=== PATIENT | male | born 1955 | race Caucasian/White ===

== ENCOUNTER 2018-06-22 01:29 | Emergency (ER) | payer SELFPAY ==
[~2018-06-22] VITALS: Ht 170.2 cm; Wt 93.0 kg
[2018-06-22 01:30] VITALS: BP 154/93
--- NOTE | 2018-06-22 01:36 | NUR ---
TO ED 01 WITH STEADY GAIT
[2018-06-22] MEDS ORDERED: predniSONE 20 MG TAB PO ONE (01:40)
[2018-06-22] MEDS ORDERED: ALBUTEROL 0.083% 2.5 MG/3 ML NEBU INH ONE (01:40)
[2018-06-22] MEDS ORDERED: ALBUTEROL SULFATE/IPRATROPIU 3 ML SOL IH ONE (01:40)
--- NOTE | 2018-06-22 01:46 | NUR ---
PATIENT PRESENTS TO ED WITH DIFFICULTY BREATHING X 2 DAYS. AUDIBLE WHEEZING NOTED. HX--ASTHMA RX--ALBUTEROL INHALER . DENIES N/V/D; SKIN IS PINK/WARM/DRY; AAOX4 WITH EVEN AND STEADY GAIT; LUNGS CLEAR BL; HR EVEN AND REGULAR; PT DENIES ANY FEVER, AT THIS TIME; PATIENT STATES PAIN OF 0/10 AT THIS TIME; VSS; PATIENT POSITIONED FOR COMFORT; HOB ELEVATED; BEDRAILS UP X2; BED DOWN. ER MD MADE AWARE OF PT STATUS.
--- NOTE | 2018-06-22 02:21 | NUR ---
pt has no more breathng distress. asleep.
[2018-06-22 04:20] VITALS: BP 124/88
--- NOTE | 2018-06-22 04:21 | NUR ---
Patient discharged with v/s stable. Written and verbal after care instructions given and explained. Patient alert, oriented and verbalized understanding of instructions. Ambulatory with steady gait. All questions addressed prior to discharge. ID band removed. Patient advised to follow up with PMD. Rx of ALBUTEROL AND PREDNISONE given. Patient educated on indication of medication including possible reaction and side effects. Opportunity to ask questions provided and answered.
== END 2018-06-22 04:21 | disposition home or self-care (01) ==
LOC: MED 01:29
DX: J45.909 Unspecified asthma, uncomplicated (principal)
CPT/HCPCS: 94640; 99284; J7512; J7613; J7620

== ENCOUNTER 2018-09-30 18:13 | Emergency (ER) | payer SELFPAY ==
[~2018-09-30] VITALS: Ht 167.6 cm; Wt 111.3 kg
[2018-09-30 18:15] VITALS: BP 141/85
--- NOTE | 2018-09-30 18:19 | NUR ---
PATIENT AMBULATED TO BED 11.
--- NOTE | 2018-09-30 18:20 | NUR ---
63 Y MALE PT BIB FAMILY C/O SOB, SORE THROAT, PRODUCTIVE COUGH X 2 DAYS. PAIN 0/10. SKIN COOL/CLAMMY/WET. BILATERAL WHEEZING UPON INHALATION AND EXPIRATION. RR 21. PT OXYGEN AT 93%. PT AA0X4. PATIENT STATES HIS BREATHING TREATMENT ARE NOT WORKING. ER MD AT BEDSIDE HX-COPD RX- ALBUTEROL NKA
--- NOTE | 2018-09-30 18:26 | NUR ---
OXYGEN CONTINUES TO DROP TO 90. PT STARTED ON 4 L NC. OXYGEN AT 96%
[2018-09-30] MEDS ORDERED: IPRATROPIUM 0.02% 0.5 MG/2.5 ML NEBU INH ONE (18:30)
[2018-09-30] MEDS ORDERED: predniSONE 20 MG TAB PO ONE (18:30)
[2018-09-30] MEDS ORDERED: ALBUTEROL 0.083% 2.5 MG/3 ML NEBU INH ONE ×2 (18:30→19:15)
[2018-09-30] MEDS ORDERED: UMEC1POW IH (18:33)
[2018-09-30] MEDS ORDERED: PRON INH (18:33)
--- NOTE | 2018-09-30 18:36 | NUR ---
RT AT BEDSIDE
--- NOTE | 2018-09-30 19:01 | NUR ---
RT FINISHED AT BEDSIDE
--- NOTE | 2018-09-30 19:07 | NUR ---
REPORT GIVEN TO STEFFI LLANOS
--- NOTE | 2018-09-30 19:45 | NUR ---
PT AMBULATED TO RESTROOM WITHOUT ASSISANCE. HE STATES BREATHING FEELING BETTER. STRONG AUDIBLE WHEEZING HEARD ON EXPIRATION. WINDED WHILE AMBULATING. 02SAT 91% @RA. AMBULATED BACK TO BED. 96% WITH NC @ 4LPM. CONTINUE TO MONITOR.
[2018-09-30] MEDS ORDERED: MAG SULF 2000 MG/WATER PREMIX 50 ML IV ONE (20:05)
[2018-09-30] MEDS ORDERED: methylPREDNISolone SS 125 MG/2 ML VIAL IVP ONE (20:05)
[2018-09-30] MEDS ORDERED: ALBUTEROL SULFATE/IPRATROPIU 3 ML SOL IH ONE (20:45)
--- NOTE | 2018-09-30 21:00 | NUR ---
PT IN BED RESTING WITH EYES OPEN. PT STAETS FEELING BETTER. WHEEZING HEARD. VSS. CONTINUE TO MONITOR.
--- NOTE | 2018-09-30 21:15 | NUR ---
RT AT BEDSIDE.
--- NOTE | 2018-09-30 21:31 | NUR ---
PT IN BED RESTING WITH EYES OPEN. STATES FEELING RELIEF AND BREATHING EASIER. VSS. CONTINUE TO MONITOR.
[2018-09-30 21:55] VITALS: BP 143/60
--- NOTE | 2018-09-30 21:55 | NUR ---
DISCHARGE PAPERS GIVEN TO PT. LUNGS CLEAR BILAT WITH REDUCED EXPIRATORY WHEEZING. O2SAT 91%AT RA. PT STATES FEELING MUCH BETTER AND READ TO GO HOME. VSS. RX OF PROAIR HFA, PREDNISONE, AND AMOXICILLIN GIVEN. SIDE EFFECTS EXPLAINED. INSTRUCTED TO F/U WITH PCP AND WHEN TO RETURN TO ER. PT VERBALLIZED UNDERSTANDING OF DC INSTRUCTIONS. ALL QUESTIONS ANSWERED.
== END 2018-09-30 21:55 | disposition home or self-care (01) ==
LOC: MED 18:13
DX: J44.1 Chronic obstructive pulmonary disease with (acute) exacerbation (principal); Z79.899 Other long term (current) drug therapy; Z90.49 Acquired absence of other specified parts of digestive tract
CPT/HCPCS: 94640; 94760; 96365; 96375; 99284; J2930; J3475; J7512; J7613; J7620; J7644

== ENCOUNTER 2018-10-01 12:43 | Inpatient (IN) | payer SELFPAY ==
--- NOTE | 2018-09-19 23:45 | NUR ---
PT LYING IN BED. PER PT, HE FELT BETTER WITH BREATHING TREATMENT. DENIES SOB OR PAIN. Addendum: 10/02/18 at 0235 by Mamadou Rogers RN WRONG TIME
[~2018-10-01] VITALS: Ht 170.2 cm; Wt 94.8 kg
[~2018-10-01 12:43] MED LIST: PRON INH; UMEC1POW IH
--- NOTE | 2018-10-01 12:56 | NUR ---
PT NOTED WITH LABORED BREATHING; USING ACCESSORY MUSCLES. RESPIRATORY THERAPIST CALLED. HOB ELEVATED. PLACED ON 2L OF O2 VIA NC.
--- NOTE | 2018-10-01 12:56 | NUR ---
PT PRESENTS TO ED C/O SOB X 2 DAYS. PT STATES HE WAS SEEN HERE IN [facility] YESTERDAY BUT WAS UNABLE TO FILL RX. O2 SAT <90%; PT PLACED ON 2 L OF O2 VIA NC--96% MEDICAL HX: COPD ALLERGIES: MOTRIN
--- NOTE | 2018-10-01 12:57 | NUR ---
Respiratory Therapist at bedside for respiratory intervention.
[2018-10-01 12:58] VITALS: BP 173/94
[2018-10-01] MEDS ORDERED: ALBUTEROL SULFATE/IPRATROPIU 3 ML SOL IH ONE (13:00)
[2018-10-01] MEDS ORDERED: methylPREDNISolone SS 125 MG/2 ML VIAL IVP ONE (13:00)
--- NOTE | 2018-10-01 13:01 | NUR ---
PT CAME IN SOB AFTER HIS DR OFFICE(PER PT). PLACED PT ON 3L NC. PT IS SITTING IN BED. MONITORING PT. MD ARGUETA MADE AWARE OF PT SITUATION.
--- NOTE | 2018-10-01 13:08 | NUR ---
DR. ARGUETA BEDSIDE EVALUATING PT
[2018-10-01] MEDS ORDERED: ALBUTEROL 0.083% 2.5 MG/3 ML NEBU INH ONE ×2 (13:20→13:45)
--- NOTE | 2018-10-01 13:25 | NUR ---
X RAY AT BEDSIDE
[2018-10-01 13:43] LABS: BASOPHILS % (AUTO) 0.3 % (0.0-2.0); HEMATOCRIT 44.4 % (36-52); HEMOGLOBIN 15.3 g/dL (12.0-18.0); LYMPHOCYTES # (AUTO) 1.2 K/uL (2.0-11.5); LYMPHOCYTES % (AUTO) 8.8 % (20.5-51.1); MEAN CORPUSCULAR HEMOGLOBIN 32 pg (27-31); MEAN CORPUSCULAR HGB CONC 34 g/dL (33-37); MEAN CORPUSCULAR VOLUME 92.1 fL (80-94); MONOCYTES # (AUTO) 0.2 K/uL (0.8-1.0); MONOCYTES % (AUTO) 1.7 % (1.7-9.3); NEUTROPHILS # (AUTO) 11.9 K/uL (1.8-7.7); NEUTROPHILS % (AUTO) 89.2 % (42.2-75.2); PLATELET COUNT (AUTO) 366 K/uL (140-450); RED BLOOD CELL COUNT(AUTO) 4.83 MIL/uL (4.20-6.10); RED CELL DISTRIBUTION WIDTH 14.5 % (11.6-13.7); WHITE BLOOD COUNT (AUTO) 13.3 K/uL (4.8-10.8)
[2018-10-01] MEDS ORDERED: MAG SULF 2000 MG/WATER PREMIX 50 ML IV ONE (13:45)
[2018-10-01 14:06] LABS: ANION GAP 13.5 (8-16); CARBON DIOXIDE 25.8 mmol/L (21-32); CREATININE 1.1 mg/dL (0.7-1.3); POTASSIUM 4.3 mmol/L (3.5-5.1)
[2018-10-01 14:17] LABS: ALBUMIN 4.2 g/dL (3.4-5.0); TOTAL BILIRUBIN 0.9 mg/dL (0.0-1.0)
[2018-10-01] MEDS ORDERED: hydrALAZINE 20 MG/ML VIAL IVP ONE (14:30)
[2018-10-01] MEDS ORDERED: HYDROcodone/APAP 5/325 MG 1 TAB TAB PO PRN (15:00)
[2018-10-01] MEDS ORDERED: DOCUSATE SODIUM 100 MG GELCAP PO PRN (15:00)
[2018-10-01] MEDS ORDERED: ACETAMINOPHEN 325 MG TAB PO PRN (15:00)
[2018-10-01] MEDS ORDERED: ONDANSETRON 4 MG/2 ML VIAL IM/IVP PRN (15:00)
[2018-10-01] MEDS ORDERED: MORPHINE SULFATE 2 MG/ML SYR IVP PRN (15:00)
[2018-10-01] MEDS ORDERED: LORazepam 2 MG/ML VIAL IM/IVP PRN (15:00)
[2018-10-01 15:40] VITALS: BP 132/68
--- NOTE | 2018-10-01 15:40 | NUR ---
Patient will be admitted to care of DR ASKEW. Admited to TELE. Will go to room 124B. Belongings list completed. Report to VIET TRIPLETT.
--- NOTE | 2018-10-01 15:40 | NUR ---
RECEIVED REPORT FROM EMERGENCY ROOM NURSE JACKIE FOR CONTINUITY OF CARE. PT IN STABLE CONDITION. RESPIRATIONS EVEN AND UNLABORED. O2 2L VIA NC INTACT AND PATENT. IV INTACT AND PATENT. SKIN INTACT. SKIN COLOR NORMAL TO ETHNICITY. CALL LIGHT AT BEDSIDE, INSTRUCTIONS GIVEN FOR USE PT VERBALIZED UNDERSTANDING OF INSTRUCTIONS. BED IN LOW POSITION. WILL CONTINUE TO MONITOR.
[2018-10-01 15:52] LABS: PROTHROMBIN TIME 9.9 secs (10.8-13.4)
[2018-10-01 16:02] LABS: FREE T4 (FREE THYROXINE) 0.82 ng/dL (0.76-1.46); MAGNESIUM 2.2 mg/dL (1.8-2.4); PHOSPHORUS 2.5 mg/dL (2.5-4.9); THYROID STIMULATING HORMONE 0.52 uIU/mL (0.34-3.74)
[2018-10-01] MEDS: NACL 0.9% 1,000 ML IV SCH (16:31)
--- NOTE | 2018-10-01 16:45 | NUR ---
MRSA NARES SPECIMEN TAKEN TO LAB AT THIS TIME.
--- NOTE | 2018-10-01 19:22 | NUR ---
GAVE REPORT TO FLORIST HELPER NURSE MARCELLA FOR CONTINUITY OF CARE. PT IN STABLE CONDITION
--- NOTE | 2018-10-01 19:23 | NUR ---
RECEIVED REPORT FROM DAY SHIFT NURSE. PT SITTING ON BED. AAOX4. NO C/O PAIN OR SOB. ON O2 AT 2L/MIN VIA NC. SKIN INTACT. IV TO LEFT AC #22G, NS AT 60 ML/HR INFUSING WELL. DISCUSSED PLAN OF CARE, PT VERBALIZED UNDERSTANDING. CALL LIGHT WITHIN REACH.
[2018-10-01] MEDS: ALBUTEROL SULFATE/IPRATROPIU 3 ML SOL IH SCH ×2 (19:38→23:02)
[2018-10-01 20:00] VITALS: BP 122/60
[2018-10-01] MEDS ORDERED: AZITHROMYCIN 250 MG TAB PO SCH ×2 (20:40→21:41)
--- NOTE | 2018-10-01 22:30 | NUR ---
FOLLOW UP PT'S CT CHEST ANGIO WITH/WITHOUT CONTRAST. TECH STILL BUSY AT THE ER BUT WILL DO THE PROCEDURE SOON HE'S DONE.
--- NOTE | 2018-10-01 23:05 | NUR ---
PT C/O MILD SOB. RT IN THE ROOM TO GIVE BREATHING TREATMENT.
--- NOTE | 2018-10-01 23:45 | NUR ---
PT LYING IN BED. PER PT, HE FELT BETTER WITH BREATHING TREATMENT. DENIES SOB OR PAIN
[2018-10-02] VITALS: BP 120/71
--- NOTE | 2018-10-02 00:15 | NUR ---
INSERTED IV LINE #20G TO RIGHT FA FOR CT PROCEDURE. GOOD FLUSH AND BLOOD RETURN. PT TOLERATED PROCEDURE WELL.
--- NOTE | 2018-10-02 00:45 | NUR ---
PT LEFT THE UNIT FOR CT ANGIO WITH MANAGER OF RECRUITING VIA WHEELCHAIR. PT IN STABLE CONDITION.
[2018-10-02] MEDS ORDERED: ZOLPIDEM 5 MG TAB PO PRN ×2 (01:50→13:01)
--- NOTE | 2018-10-02 02:00 | NUR ---
PT BACK TO HIS ROOM. SNACK PROVIDED. ALL NEEDS ATTENDED AT THIS TIME.
--- NOTE | 2018-10-02 02:10 | NUR ---
PT C/O UNABLE TO SLEEP. DR. PADGETT MADE AWARE AND ORDERED AMBIEN 5 MG.
--- NOTE | 2018-10-02 02:15 | NUR ---
PT C/O SOB. PT SITTING ON BED. O2 SAT 94% ON 2L/MIN VIA NC. CALLED RT FOR BREATHING TREATMENT.
[2018-10-02] MEDS: ALBUTEROL SULFATE/IPRATROPIU 3 ML SOL IH SCH ×4 (02:22→19:37)
--- NOTE | 2018-10-02 02:25 | NUR ---
PT ON BREATHING TREATMENT AT THIS TIME. RT AT BEDSIDE.
--- NOTE | 2018-10-02 02:30 | NUR ---
PT C/O PAIN ON THE IV SITE RIGHT AC AND WANTED THE IV TO BE REMOVED. IV REMOVED, CANNULA TIP INTACT. NO BLEEDING NOTED.
[2018-10-02 04:00] VITALS: BP 128/72
[2018-10-02] MEDS ORDERED: FAMOTIDINE 20 MG/2 ML VIAL IV SCH (04:05)
[2018-10-02] MEDS ORDERED: HYDROCORTISONE NA SUCC 100 MG/2 ML VIAL IV SCH (04:05)
--- NOTE | 2018-10-02 04:15 | NUR ---
PT C/O SOB. PT SITTING ON BED. O2 SAT 95% ON 2L. DR. CANADA IN THE ROOM TO SEE PT.
[2018-10-02] MEDS ORDERED: methylPREDNISolone SS 125 MG/2 ML VIAL IVP SCH (04:20)
--- NOTE | 2018-10-02 04:30 | NUR ---
DR. CANADA ORDERED FAMOTIDINE 25 MG IVP AND SOLU MEDROL 125 MG IVP. PT HAVING BREATHING TREATMENT AT THIS TIME.
[2018-10-02] MEDS ORDERED: IPRATROPIUM 0.02% 0.5 MG/2.5 ML NEBU INH SCH ×2 (04:35→07:00)
--- NOTE | 2018-10-02 05:30 | NUR ---
PT SLEEPING. NO S/S OF RESP DISTRESS. NO S/S OF PAIN OR DISCOMFORT. CALL LIGHT WITHIN REACH.
[2018-10-02 06:20] LABS: BASOPHILS % (AUTO) 0.1 % (0.0-2.0); CHOL/HDL RATIO 4.4 (1-4.5); HEMATOCRIT 41.8 % (36-52); HEMOGLOBIN 14.1 g/dL (12.0-18.0); LYMPHOCYTES # (AUTO) 1.5 K/uL (2.0-11.5); LYMPHOCYTES % (AUTO) 8.9 % (20.5-51.1); MAGNESIUM 2.3 mg/dL (1.8-2.4); MEAN CORPUSCULAR HEMOGLOBIN 31 pg (27-31); MEAN CORPUSCULAR HGB CONC 34 g/dL (33-37); MEAN CORPUSCULAR VOLUME 92.4 fL (80-94); MONOCYTES # (AUTO) 1.2 K/uL (0.8-1.0); MONOCYTES % (AUTO) 7.3 % (1.7-9.3); NEUTROPHILS # (AUTO) 14.1 K/uL (1.8-7.7); NEUTROPHILS % (AUTO) 83.7 % (42.2-75.2); PHOSPHORUS 4.3 mg/dL (2.5-4.9); PLATELET COUNT (AUTO) 358 K/uL (140-450); RED BLOOD CELL COUNT(AUTO) 4.53 MIL/uL (4.20-6.10); RED CELL DISTRIBUTION WIDTH 14.2 % (11.6-13.7); WHITE BLOOD COUNT (AUTO) 16.8 K/uL (4.8-10.8)
[2018-10-02 06:21] LABS: ANION GAP 12.6 (8-16); CARBON DIOXIDE 25.9 mmol/L (21-32); POTASSIUM 4.5 mmol/L (3.5-5.1)
--- NOTE | 2018-10-02 07:10 | NUR ---
ENDORSED PT TO DAY SHIFT NURSE. PT IN STABLE CONDITION.
--- NOTE | 2018-10-02 07:20 | NUR ---
RECEIVED REPORT TO LENS BLANK GAUGER NURSE ANN FOR CONTINUITY OF CARE. PT IN STABLE CONDITION. RESPIRATIONS EVEN AND UNLABORED. IV INTACT AND PATENT. SAFETY MEASURES IN PLACE. CALL LIGHT AT BEDSIDE INSTRUCTIONS GIVEN, PT VERBALIZED UNDERSTANDING OF INSTRUCTIONS. BED IN LOW POSITION. WILL CONTINUE TO MONITOR.
[2018-10-02] MEDS: ALBUTEROL SULFATE/IPRATROPIU 3 ML SOL IH PRN (07:29)
[2018-10-02] MEDS: BUDESONIDE 0.5 MG/2 ML NEBU INH SCH ×2 (07:30→19:37)
[2018-10-02 08:00] VITALS: BP 128/74
--- NOTE | 2018-10-02 08:04 | NUR ---
PATIENT HAS BEEN SCREENED AND CATEGORIZED MODERATE NUTRITION RISK. PATIENT WILL BE SEEN WITHIN 3-5 DAYS OF ADMISSION. 10/04/18KELSI [address]
[2018-10-02] MEDS: NACL 0.9% 1,000 ML IV SCH (09:41)
--- NOTE | 2018-10-02 09:45 | NUR ---
PT LYING IN BED IN STABLE CONDITION. RESPIRATIONS EVEN AND UNLABORED. BED IN LOW POSITION. CALL LIGHT AT BEDSIDE. WILL CONTINUE TO MONITOR.
--- NOTE | 2018-10-02 11:06 | NUR ---
PT LYING IN BED WITH FAMILY (SISTER) AT BEDSIDE. RESPIRATIONS EVEN AND UNLABORED. BED IN LOW POSITION. CALL LIGHT AT BEDSIDE. WILL CONTINUE TO MONITOR.
[2018-10-02 12:00] VITALS: BP 148/62
[2018-10-02] MEDS ORDERED: BENZONATATE 100 MG CAPLF PO PRN (13:00)
[2018-10-02] MEDS ORDERED: PUL.25N INH (13:23)
--- NOTE | 2018-10-02 13:45 | NUR ---
PT RECEIVING BREATHING TREATMENT AT THIS TIME. PT TOLERATING WELL. RESPIRATIONS EVEN AND UNLABORED WILL CONTINUE TO MONITOR. BED IN LOW POSITION. CALL LIGHT AT BEDSIDE.
[2018-10-02] MEDS: methylPREDNISolone SS 125 MG/2 ML VIAL IVP SCH ×2 (14:28→21:02)
--- NOTE | 2018-10-02 14:49 | NUR ---
TOLERATED INCENTIVE SPIROMETRY THERAPY WELL WITHOUT INCIDENT ENCOURAGED PATIENT WITH ACKNOWLEDGEMENT TO USE INCENTIVE SPIROMETRY EVERY 1-2 HOURS WHILE AWAKE
--- NOTE | 2018-10-02 15:58 | NUR ---
PT LYING IN BED WITH FRIEND AT BEDSIDE. PT IN STABLE CONDITION. CALL LIGHT AT BEDSIDE. BED IN LOW POSITION. WILL CONTINUE TO MONITOR.
[2018-10-02 16:00] VITALS: BP 144/83
[2018-10-02] MEDS ORDERED: AZIT250T3 PO (18:15)
[2018-10-02] MEDS ORDERED: METH4TAB3 PO (18:15)
--- NOTE | 2018-10-02 19:23 | NUR ---
RECIEVED PT. AAOX2 , NOT IN DISTRESS . IV SIE INTACT AND PATENT , V/S STBALE , ON REGULAR DIET , PLAN OF CARE DISCUSSED AND [id number] UNDERSTANDING , CALL LIGHT WITHIN REACH .
--- NOTE | 2018-10-02 19:23 | NUR ---
GAVE REPORT TO PEDIATRIC PHYSICAL THERAPY ASSISTANT NURSE GELY FOR CONTINUITY OF CARE. PT IN STABLE CONDITION.
[2018-10-02 20:00] VITALS: BP 135/55
--- NOTE | 2018-10-02 22:00 | NUR ---
MADE ROUNDS , NO COMPLAIN ANY DISTRESS AT THIS TIME, CALL LIGHT WITHIN REACH.
--- NOTE | 2018-10-03 | NUR ---
PT AWAKE ON BED, V/S TAKEN WNL ,IVF INFUSING WELL , CALL LIGHT WITH REACH ,WILL CONTINUE TO MONITOR.
[2018-10-03] MEDS: NACL 0.9% 1,000 ML IV SCH ×2 (00:18→06:16)
[2018-10-03 00:55] VITALS: BP 136/60
[2018-10-03] MEDS: ALBUTEROL SULFATE/IPRATROPIU 3 ML SOL IH PRN (03:02)
[2018-10-03 04:00] VITALS: BP 125/73
--- NOTE | 2018-10-03 04:00 | NUR ---
V/S TAKEN WNL , VODED FREELY , IVF INFUSING WELL , IV SITE INTACT AND PATENT , WILL CONTINUE TO MONITOR
--- NOTE | 2018-10-03 06:00 | NUR ---
BLOOD COLLECTED BY VENIPUNCTURE AND SENT TO LAB ORDERED , DUE MEDS GIVEN , NO FURTHER COMPLAIN THIS TIME, WILL CONTINUE TO MONITOR.
[2018-10-03] MEDS: methylPREDNISolone SS 125 MG/2 ML VIAL IVP SCH (06:13)
[2018-10-03 06:18] LABS: BASOPHILS % (AUTO) 0.1 % (0.0-2.0); HEMATOCRIT 41.7 % (36-52); HEMOGLOBIN 14.3 g/dL (12.0-18.0); LYMPHOCYTES # (AUTO) 0.8 K/uL (2.0-11.5); LYMPHOCYTES % (AUTO) 5.6 % (20.5-51.1); MEAN CORPUSCULAR HEMOGLOBIN 32 pg (27-31); MEAN CORPUSCULAR HGB CONC 34 g/dL (33-37); MEAN CORPUSCULAR VOLUME 93.1 fL (80-94); MONOCYTES # (AUTO) 0.4 K/uL (0.8-1.0); MONOCYTES % (AUTO) 2.9 % (1.7-9.3); NEUTROPHILS # (AUTO) 12.7 K/uL (1.8-7.7); NEUTROPHILS % (AUTO) 91.4 % (42.2-75.2); PLATELET COUNT (AUTO) 322 K/uL (140-450); RED BLOOD CELL COUNT(AUTO) 4.48 MIL/uL (4.20-6.10); RED CELL DISTRIBUTION WIDTH 14.6 % (11.6-13.7); WHITE BLOOD COUNT (AUTO) 13.9 K/uL (4.8-10.8)
--- NOTE | 2018-10-03 07:22 | NUR ---
ENDORSED TO AM SHIFT FOR CONTINUITY OF CARE.
--- NOTE | 2018-10-03 07:23 | NUR ---
RECEIVED ENDORSEMENT FROM MACHINE GUN MECHANIC. PATIENT IS AAOX4, POLISH AND ANDORRAN SPEAKING. RESPIRATIONS ARE EVEN AND UNLABORED ON 2L OXYMIZER. PATIENT DENIES ANY PAIN AT THIS TIME. LEFT AC 22G INTACT, PATENT, AND INFUSING IVF. PLAN OF CARE WAS REVIEWED WITH PATIENT. PATIENT VERBALIZED UNDERSTANDING. SAFETY MEASURES IN PLACE, CALL LIGHT WITHIN REACH. Addendum: 10/03/18 at 0916 by Amna Ayala RN *ON 2L NC
[2018-10-03] MEDS: ALBUTEROL SULFATE/IPRATROPIU 3 ML SOL IH SCH (07:56)
[2018-10-03] MEDS: BUDESONIDE 0.5 MG/2 ML NEBU INH SCH (07:56)
[2018-10-03 08:00] VITALS: BP 146/77
--- NOTE | 2018-10-03 08:45 | NUR ---
ADMINISTERED SCHEDULED MEDICATIONS. PATIENT DENIES ANY SOB OR PAIN. NO OTHER NEEDS AT THIS TIME.
--- NOTE | 2018-10-03 09:47 | NUR ---
PATIENT SLEEPING IN BED, EASILY AROUSABLE. REMOVED USER EXPERIENCE RESEARCHER. DENIES ANY PAIN AT THIS TIME. NO OTHER NEEDS AT THIS TIME. WILL CONTINUE TO MONITOR.
[2018-10-03] MEDS ORDERED: PHEN30SP10 MM (10:24)
--- NOTE | 2018-10-03 10:35 | NUR ---
DISCONTINUED IV, CANNULA INTACT WITH MINIMAL BLEEDING. DISCHARGE INSTRUCTIONS GIVEN IN [place]. MEDICATION INSTRUCTIONS GIVEN. ALL QUESTIONS AND CONCERNS ADDRESSED. PATIENT VERBALIZED UNDERSTANDING.
--- NOTE | 2018-10-03 10:50 | NUR ---
PATIENT AMBULATED OFF UNIT WITH A STEADY GAIT, ACCOMPANIED BY SISTER. ID BAND WAS REMOVED. ALL BELONGINGS LEFT WITH PATIENT. PATIENT IS STABLE AT THIS TIME.
[2018-10-03 12:45] LABS: ANION GAP 12.7 (8-16); CARBON DIOXIDE 26.4 mmol/L (21-32); CREATININE 0.9 mg/dL (0.7-1.3); POTASSIUM 4.1 mmol/L (3.5-5.1)
[2018-10-03 12:47] LABS: MAGNESIUM 2.3 mg/dL (1.8-2.4)
[2018-10-03 12:59] LABS: PHOSPHORUS 4.6 mg/dL (2.5-4.9)
[2018-10-03] MEDS ORDERED: methylPREDNISolone SS 40 MG/ML VIAL IVP SCH (13:00)
[2018-10-03] MEDS ORDERED: PRED20TA5 PO (15:33)
== END 2018-10-03 10:56 | disposition home or self-care (01) | DRG 189 ==
LOC: MED 12:43 → MTU 14:58
PROVIDERS: ADMIT General Practice; ATTEND General Practice
DX: J96.01 Acute respiratory failure with hypoxia (principal); J44.1 Chronic obstructive pulmonary disease with (acute) exacerbation; E66.9 Obesity, unspecified; I10 Essential (primary) hypertension; T38.0X5A Adverse effect of glucocorticoids and synthetic analogues, initial encounter; D72.829 Elevated white blood cell count, unspecified; Z68.32 Body mass index [BMI] 32.0-32.9, adult; Z88.8 Allergy status to other drugs, medicaments and biological substances; Z82.49 Family history of ischemic heart disease and other diseases of the circulatory system; Z87.891 Personal history of nicotine dependence; Z79.899 Other long term (current) drug therapy; Z90.49 Acquired absence of other specified parts of digestive tract; Y92.89 Other specified places as the place of occurrence of the external cause
CPT/HCPCS: 36415; 36600; 71045; 71275; 80048; 80053; 82150; 82803; 83036; 83690; 83735; 83880; 84100; 84439; 84443; 84479; 84484; 85025; 85610; 85730; 87081; 93005; 94640; 96374; 99285; J0360; J1644; J2930; J3475; J3490; J7030; J7613; J7620; J7626; Q0092; Q9967